=== PATIENT | male | born 2000 | race Caucasian/White ===

== ENCOUNTER 2023-04-15 14:21 | Outpatient (OUT) | payer OTHER, SELFPAY ==
[2023-04-15 14:47] LABS: Basophils Percent Auto 0.3 % (0.2-2.0); Eosinophils Absolute Auto 0.3 10^3/uL (0.0-0.7); Eosinophils Percent Auto 4.3 % (0.9-7.0); Hematocrit 45.8 % (42.0-54.0); Hemoglobin 15.3 g/dL (14.0-18.0); Immature Granulocytes Abs Auto 0.01 10^3/uL (0.00-0.03); Immature Granulocytes Pct Auto 0.1 % (0.0-0.5); Lymphocytes Absolute Auto 1.9 10^3/uL (1.2-3.8); Mean Corpuscular HGB Conc 33.4 g/dL (29.9-35.2); Mean Corpuscular Hemoglobin 30.9 pg (25.9-34.0); Mean Corpuscular Volume 92.5 fL (80.0-94.0); Mean Platelet Volume 8.8 fL (9.5-13.5); Monocytes Absolute Auto 0.5 10^3/uL (0.3-0.8); Monocytes Percent Auto 7.1 % (1.7-12.0); Neutrophils Absolute Auto 4.7 10^3/uL (1.4-6.5); Neutrophils Percent Auto 63.2 % (43.0-75.0); Platelet Count 290 10^3/uL (150-450); Red Blood Count 4.95 10^6/uL (4.70-6.10); Red Cell Distribution Width 13.7 % (11.0-15.0); White Blood Count 7.4 10^3/uL (4.0-11.0)
== END 2023-04-15 14:22 | disposition home or self-care (01) ==
LOC: PST 14:22
PROVIDERS: Family Provider Pediatrics; PCP Family Medicine; Visit Provider Otolaryngology
DX: Z01.812 Encounter for preprocedural laboratory examination (principal); H69.93 Unspecified Eustachian tube disorder, bilateral
CPT/HCPCS: 85025

== ENCOUNTER 2023-04-21 07:47 | Day surgery (SDC) | payer OTHER, SELFPAY ==
[2023-04-15 14:43] VITALS: BP 130/72; PULSE 73; RESP 20; TEMP 36.7; O2SAT 96; BMI 28.5
[2023-04-21] VITALS (9 sets, daily range): BP systolic 104–158; BP diastolic 48–83; PULSE 68–90; RESP 12–16; TEMP 36.3–36.6; O2SAT 95–100; BMI 28.6
--- NOTE | 2023-04-21 | OP_ITS ---
OPERATION DATE: 04/21/2023 PRIMARY CARE PHYSICIAN: Schuyler Cox D.O. SURGEON: Sabra Wong M.D. PREOPERATIVE DIAGNOSIS: Eustachian tube dysfunction. POSTOPERATIVE DIAGNOSIS: Eustachian tube dysfunction. PROCEDURE: Bilateral myringotomy and tube with microdissection, placement of T- tubes. ANESTHESIA: General LMA COMPLICATIONS: None. FINDINGS: Bilateral tympanic membrane retraction and mucoid effusion. INDICATIONS: This 22-year-old presented with chronic bilateral ear fullness and hearing loss. He is noted to have bilateral middle ear effusions on examination and he has already failed aggressive medical management. Patient also has a history of tympanostomy tube placement as a child. PROCEDURE: Patient identified in the holding area and taken back to the OR where he was placed in the supine position. After induction of general anesthesia by LMA, the right ear was approached with the otomicroscope. Cerumen was cleaned from the canal using a cerumen curette and a pick used to tease crust away from the tympanic membrane and external auditory canal, which was then removed with an alligator forcep. A anterior radial myringotomy was performed and the thick mucoid effusion was suctioned from the ear. Suction was then used to reduce the posterior tympanic membrane retraction. A modified Austin?s T-tube was the folded, inserted through the myringotomy and opened in the middle ear using microdissection. Ciprodex drops were then infused. Attention was the turned to the left ear and the same procedure performed. Patient was then awakened and taken to the recovery room in good condition. ANDREA
--- OUTSIDE RECORDS SUMMARY | 2023-04-21 07:49 | XMS_ITS | CCD ---
Author Name Unknown Address [address] [place] [address] Organization [facility] Care Team Providers Care Tester Regulator Name Role Phone DO Schuyler Cox Primary Care Provider DO Schuyler Cox Attending Provider Schuyler Cox Attending Unavailable Schuyler Cox Primary Care Unavailable Schuyler Cox Admitting Unavailable Minerva Asif Unavailable Schuyler Cox Unavailable SHAUNNA BRADLEY Attending Unavailable SCHUYLER COX Referring Unavailable SABRA WONG Attending Unavailable SCHUYLER COX Referring Unavailable Medications Current Medications Medication Drug Class(es) Dates Sig (Normalized) Sig (Original) amoxicillin 875 mg oral tablet (3 sources) Penicillin-class Antibacterial Start: 03-13-2022 take 1 tablet by mouth every twelve hours Amoxicillin 875 MG 1 tablet Orally Twice a day for 10 day(s) Dec, Active benzonatate 100 mg oral capsule (1 source) Non-narcotic Antitussive Start: 03-26-2023 take 1 capsule by mouth three times daily as needed for cough Tessalon Perles 100 MG 1 capsule as needed Orally Three times a day as needed cough for 10 days Feb, Active cetirizine hydrochloride 10 mg oral tablet (6 sources) Histamine-1 Receptor Antagonist take 1 tablet by mouth once daily ZyrTEC Allergy 10 MG 1 tablet OTC Orally Once a day Active levoFLOXacin 500 mg oral tablet (1 source) Quinolone Antimicrobial Start: 02-23-2023 take 1 tablet by mouth every twenty-four hours levoFLOXacin 500 MG 1 tablet Orally Once a day for 20 days Jan, Active Completed/Discontinued Medications Medication Drug Class(es) Dates Sig (Normalized) Sig (Original) sulfamethoxazole 800 mg / trimethoprim 160 mg oral tablet (2 sources) Dihydrofolate Reductase Inhibitor Antibacterial, Sulfonamide Antimicrobial Start: 02-05-2023 take 1 tablet by mouth every twelve hours Bactrim DS 800-160 MG 1 tablet Orally Twice a day for 10 days Jan, Not-Taking Problems Problem Classification Problem Date Documented Date Episodic/Chronic Other ear and sense organ disorders (3 sources) Impacted cerumen, left ear Episodic Other non-traumatic joint disorders (1 source) Pain in left shoulder Episodic Other upper respiratory disease (5 sources) Perennial allergic rhinitis; Translations: [Other allergic rhinitis] Chronic Other upper respiratory disease (1 source) Other allergic rhinitis Chronic Other upper respiratory infections (1 source) Acute sinusitis, unspecified Episodic Otitis media and related conditions (13 sources) Otitis media, unspecified, right ear; Translations: [Unspecified nonsuppurative otitis media, right ear] Episodic Residual codes; unclassified (1 source) Personal history of systemic steroid therapy; Translations: [Personal history of systemic steroid therapy] Onset: 03-18-2022 Episodic Residual codes; unclassified (6 sources) History of clinical finding in subject; Translations: [Personal history of systemic steroid therapy] Episodic Unclassified (1 source) Encounter for general adult medical examination without abnormal findings; Translations: [Encounter for general adult medical examination without abnormal findings] Onset: 03-18-2022 Results Test Name Value Interpretation Reference Range Facility Basic Metabolic Panelon 02-28 Anion gap [Moles/Vol] 11.3 mmol/L Normal 6.0-15.0 [facility] Comment on above: Order Comment: Mustaphao n for Exam Adult general medical examination FASTING. JKW Performed By: #### T SH3, T4T, LIPID, HEPATIC, TEST, CBC, BMP #### [facility] [address] [place] [address] [place] Calcium [Mass/Vol] 9.9 mg/dL Normal 8.2-10.2 [facility] Comment on above: Order Comment: Mustaphao n for Exam Adult general medical examination FASTING. JKW Performed By: #### T SH3, T4T, LIPID, HEPATIC, TEST, CBC, BMP #### [facility] [address] [place] [id number] [place] Chloride [Moles/Vol] 101 mmol/L Normal 95-114 [facility] Comment on above: Order Comment: Reaso n for Exam Adult general medical examination FASTING. JKW Performed By: #### T SH3, T4T, LIPID, HEPATIC, TEST, CBC, BMP #### [facility] [address] CO2 [Moles/Vol] 30.0 mmol/L Normal 22.0-30.0 [facility] Comment on above: Order Comment: Reaso n for Exam Adult general medical examination FASTING. JKW Performed By: #### T SH3, T4T, LIPID, HEPATIC, TEST, CBC, BMP #### [facility] [address] Creatinine [Mass/Vol] 1.37 mg/dL High 0.64-1.27 [facility] Comment on above: Order Comment: Reaso n for Exam Adult general medical examination FASTING. JKW Performed By: #### T SH3, T4T, LIPID, HEPATIC, TEST, CBC, BMP #### [facility] [address] Estimated GFR ( Lorenza > 60 [facility] Comment on above: Order Comment: Reaso n for Exam Adult general medical examination FASTING. JKW Result Comment: GFR estimated reference range: According to KDOQI guidelines, <60 ml/min/1.73m2 is sufficient to diagnose a patient with chronic kidney disease. Performed By: #### T SH3, T4T, LIPID, HEPATIC, TEST, CBC, BMP #### [facility] [address] Estimated GFR (Non- Am > 60 [facility] Comment on above: Order Comment: Reaso n for Exam Adult general medical examination FASTING. JKW Performed By: #### T SH3, T4T, LIPID, HEPATIC, TEST, CBC, BMP #### [facility] [address] [place] [id number] [place] Glucose [Mass/Vol] 95 mg/dL Normal 70-100 [facility] Comment on above: Order Comment: Reaso n for Exam Adult general medical examination FASTING. JKW Result Comment: Welcome om Glucose Reference Range is dependent on time and content of last meal. Glucose of more than 200 mg/dL in a nonstressed, ambulatory subject supports the diagnosis of Diabetes Mellitus. ADA recommended reference range Performed By: #### T SH3, T4T, LIPID, HEPATIC, TEST, CBC, BMP #### [facility] [address] Potassium [Moles/Vol] 4.3 mmol/L Normal 3.5-5.1 [facility] Comment on above: Order Comment: Reaso n for Exam Adult general medical examination FASTING. JKW Performed By: #### T SH3, T4T, LIPID, HEPATIC, TEST, CBC, BMP #### [facility] [address] Sodium [Moles/Vol] 138 mmol/L Normal 136-146 [facility] Comment on above: Order Comment: Reaso n for Exam Adult general medical examination FASTING. JKW Performed By: #### T SH3, T4T, LIPID, HEPATIC, TEST, CBC, BMP #### [facility] [address] Urea nitrogen [Mass/Vol] 23 mg/dL Normal 9-23 [facility] Comment on above: Order Comment: Reaso n for Exam Adult general medical examination FASTING. JKW Performed By: #### T SH3, T4T, LIPID, HEPATIC, TEST, CBC, BMP #### [facility] [address] Basophils Auto (Bld) [#/Vol] Ordered By: Schuyler Cox on 03-18-2022 Basophils (Bld) [#/Vol] 0.0 10*3/uL 0.0-0.2 [facility] Basophils/100 WBC Auto (Bld) Ordered By: Schuyler Cox on 03-18-2022 Basophils/100 WBC (Bld) 0.2 % . F [facility] Body fluid albumin measureme nt (mass/volume)Ordered By: Schuyler Cox on 03-18-2022 Albumin (Body fld) [Mass/Vol] 4.5 g/dL 3.2-5.5 [facility] Cholesterol [Mass/volume] in Serum or PlasmaOrdered By: Schuyler Cox on 03-18-2022 Cholesterol [Mass/Vol] 165 mg/dL 140-200 [facility] Comment on above: Chol less than 200 m g/dl low riskChol 201-239 mg/dl borderline riskChol 240 mg/dl and greater high risk Cholesterol in LDL Calc [Mas s/Vol]Ordered By: Schuyler Cox on 03-18-2022 Cholesterol in LDL [Mass/Vol] 101 mg/dL 0-100 [facility] Comment on above: LDL ATP III CLASSIFI CATIONLDL less than 100 mg/dL OptimalLDL 100-129 mg/dL Near or above optimalLDL 130-159 mg/dL Borderline highLDL 160-189 mg/dL HighLDL greater than 189 mg/dL Very high Cholesterol in VLDL Calc [Ma ss/Vol]Ordered By: Schuyler Cox on 03-18-2022 Cholesterol in VLDL [Mass/Vol] 15 mg/dL [facility] Complete Blood Count Auto Di ffon 03-18-2022 Basophils (Bld) [#/Vol] 0.0 10*3/uL Normal 0.0-0.2 [facility] Comment on above: Order Comment: Reaso n for Exam Adult general medical examination Result Comment: PERF ORMED BY: [place] [address] PATHOLOGIST [employer] HELPER LES MORENO M.D. Performed By: #### T SH3, T4T, LIPID, HEPATIC, TEST, CBC, BMP #### [facility] [address] Basophils/100 WBC (Bld) 0.2 % Normal . F [facility] Comment on above: Order Comment: Reaso n for Exam Adult general medical examination Performed By: #### T SH3, T4T, LIPID, HEPATIC, TEST, CBC, BMP #### [facility] [address] Eosinophils (Bld) [#/Vol] 0.3 10*3/uL Normal 0.0-0.45 [facility] Comment on above: Order Comment: Reaso n for Exam Adult general medical examination Performed By: #### T SH3, T4T, LIPID, HEPATIC, TEST, CBC, BMP #### [facility] [address] [place] [address] [place] Eosinophils/100 WBC (Bld) 4.2 % Normal . [facility] Comment on above: Order Comment: Reaso n for Exam Adult general medical examination Performed By: #### T SH3, T4T, LIPID, HEPATIC, TEST, CBC, BMP #### [address] Erythrocyte distribution width (RBC) [Ratio] 12.4 % Normal 12.0-14.8 [facility] Comment on above: Order Comment: Reaso n for Exam Adult general medical examination Performed By: #### T SH3, T4T, LIPID, HEPATIC, TEST, CBC, BMP #### [address] Hematocrit (Bld) [Volume fraction] 47.1 % Normal 38.8-50.0 [facility] Comment on above: Order Comment: Reaso n for Exam Adult general medical examination Performed By: #### T SH3, T4T, LIPID, HEPATIC, TEST, CBC, BMP #### [address] Hemoglobin (Bld) [Mass/Vol] 15.4 g/dL Normal 13.0-17.0 [facility] Comment on above: Order Comment: Reaso n for Exam Adult general medical examination Performed By: #### T SH3, T4T, LIPID, HEPATIC, TEST, CBC, BMP #### [place] [address] [place] Lymphocytes (Bld) [#/Vol] 2.5 10*3/uL Normal 1.00-4.8 [facility] Comment on above: Order Comment: Reaso n for Exam Adult general medical examination Performed By: #### T SH3, T4T, LIPID, HEPATIC, TEST, CBC, BMP #### [address] Lymphocytes/100 WBC (Bld) 37.0 % Normal . [facility] Comment on above: Order Comment: Reaso n for Exam Adult general medical examination Performed By: #### T SH3, T4T, LIPID, HEPATIC, TEST, CBC, BMP #### [facility] [address] MCH (RBC) [Entitic mass] 30.8 pg Normal 27.5-35.2 [facility] Comment on above: Order Comment: Reaso n for Exam Adult general medical examination Performed By: #### T SH3, T4T, LIPID, HEPATIC, TEST, CBC, BMP #### [address] MCV (RBC) [Entitic vol] 94.5 fL Normal 83.5-[address] [facility] Comment on above: Order Comment: Reaso n for Exam Adult general medical examination Performed By: #### T SH3, T4T, LIPID, HEPATIC, TEST, CBC, BMP #### [address] Mean Corpuscular HGB Conc 32.6 g/dL Normal 32.5-35.6 [facility] Comment on above: Order Comment: Reaso n for Exam Adult general medical examination Performed By: #### T SH3, T4T, LIPID, HEPATIC, TEST, CBC, BMP #### [address] Monocytes (Bld) [#/Vol] 0.7 10*3/uL Normal 0.0-0.8 [facility] Comment on above: Order Comment: Reaso n for Exam Adult general medical examination Performed By: #### T SH3, T4T, LIPID, HEPATIC, TEST, CBC, BMP #### [address] Monocytes/100 WBC (Bld) 9.7 % Normal . F [facility] Comment on above: Order Comment: Reaso n for Exam Adult general medical examination Performed By: #### T SH3, T4T, LIPID, HEPATIC, TEST, CBC, BMP #### [address] Neutrophils (Bld) [#/Vol] 3.4 10*3/uL Normal 1.8-7.7 [facility] Comment on above: Order Comment: Reaso n for Exam Adult general medical examination Performed By: #### T SH3, T4T, LIPID, HEPATIC, TEST, CBC, BMP #### [address] Neutrophils/100 WBC (Bld) 48.9 % Normal . [facility] Comment on above: Order Comment: Reaso n for Exam Adult general medical examination Performed By: #### T SH3, T4T, LIPID, HEPATIC, TEST, CBC, BMP #### [address] NRBC% 0.1 /100{WBC} Normal 0-0.5 [facility] Comment on above: Order Comment: Reaso n for Exam Adult general medical examination Performed By: #### T SH3, T4T, LIPID, HEPATIC, TEST, CBC, BMP #### [address] Platelet mean volume (Bld) [Entitic vol] 7.6 fL Normal 6.6-10.1 [facility] Comment on above: Order Comment: Reaso n for Exam Adult general medical examination Performed By: #### T SH3, T4T, LIPID, HEPATIC, TEST, CBC, BMP #### [address] Platelets (Bld) [#/Vol] 235 10*3/uL Normal 150-450 [facility] Comment on above: Order Comment: Reaso n for Exam Adult general medical examination Performed By: #### T SH3, T4T, LIPID, HEPATIC, TEST, CBC, BMP #### [address] RBC (Bld) [#/Vol] 4.99 10*6/uL Normal 3.90-5.60 [facility] Comment on above: Order Comment: Reaso n for Exam Adult general medical examination Performed By: #### T SH3, T4T, LIPID, HEPATIC, TEST, CBC, BMP #### [address] WBC (Bld) [#/Vol] 6.9 10*3/uL Normal 4.1-10.5 [facility] Comment on above: Order Comment: Reaso n for Exam Adult general medical examination Performed By: #### T SH3, T4T, LIPID, HEPATIC, TEST, CBC, BMP #### [facility] [address] Creatinine and Glomerular fi ltration rate.predicted panel (S/P/Bld)Ordered By: Schuyler Cox on 03-18-2022 Creatinine [Mass/Vol] 1.37 mg/dL 0.64-1.27 [facility] Direct bilirubin measurement Ordered By: Schuyler Cox on 03-18-2022 Bilirubin.direct [Mass/Vol] 0.1 mg/dL 0.0-0.4 [facility] Eosinophils Auto (Bld) [#/Vo l]Ordered By: Schuyler Cox on 03-18-2022 Eosinophils (Bld) [#/Vol] 0.3 10*3/uL 0.0-0.45 [facility] Eosinophils/100 WBC Auto (Bl d)Ordered By: Schuyler Cox on 03-18-2022 Eosinophils/100 WBC (Bld) 4.2 % . [facility] Erythrocyte distribution wid th Auto (RBC) [Ratio]Ordered By: Schuyler Cox on 03-18-2022 Erythrocyte distribution width (RBC) [Ratio] 12.4 % 12.0-14.8 [facility] Estimated glomerular filtrat ion rate (GFR) non- AmericanOrdered By: Schuyler Cox on 03-18-2022 GFR/1.73 sq M.predicted among non-blacks MDRD (S/P/Bld) [Vol rate/Area] > 60 mL/Min [facility] Globulin Calc (S) [Mass/Vol] Ordered By: Schuyler Cox on 03-18-2022 Globulin (S) [Mass/Vol] 2.6 g/dL [facility] Hematocrit Auto (Bld) [Volum e fraction]Ordered By: Schuyler Cox on 03-18-2022 Hematocrit (Bld) [Volume fraction] 47.1 % 38.8-50.0 [facility] Hemoglobin [Mass/volume] in BloodOrdered By: Schuyler oCx on 03-18-2022 Hemoglobin (Bld) [Mass/Vol] 15.4 g/dL 13.0-17.0 [facility] Hepatic Panelon 03-18-2022 Albumin [Mass/Vol] 4.5 g/dL Normal 3.2-5.5 [facility] Comment on above: Order Comment: Reaso n for Exam Adult general medical examination FASTING. JKW Performed By: #### T SH3, T4T, LIPID, HEPATIC, TEST, CBC, BMP #### [facility] [address] [place] [id number] [facility] Albumin/Globulin [Mass ratio] 1.7 {ratio} Normal [facility] Comment on above: Order Comment: Reaso n for Exam Adult general medical examination FASTING. JKW Performed By: #### T SH3, T4T, LIPID, HEPATIC, TEST, CBC, BMP #### [facility] [address] [place] [address] [place] ALP [Catalytic activity/Vol] 68 U/L Normal 32-92 [facility] Comment on above: Order Comment: Reaso n for Exam Adult general medical examination FASTING. JKW Performed By: #### T SH3, T4T, LIPID, HEPATIC, TEST, CBC, BMP #### [facility] [address] [place] [address] [place] ALT [Catalytic activity/Vol] 43 U/L Normal 10-60 [facility] Comment on above: Order Comment: Reaso n for Exam Adult general medical examination FASTING. JKW Performed By: #### T SH3, T4T, LIPID, HEPATIC, TEST, CBC, BMP #### [facility] [address] [place] [address] [place] AST [Catalytic activity/Vol] 44 U/L High 10-42 [facility] Comment on above: Order Comment: Reaso n for Exam Adult general medical examination FASTING. JKW Performed By: #### T SH3, T4T, LIPID, HEPATIC, TEST, CBC, BMP #### [facility] [address] [place] [address] [place] Bilirubin [Mass/Vol] 0.8 mg/dL Normal 0.3-1.2 [facility] Comment on above: Order Comment: Reaso n for Exam Adult general medical examination FASTING. JKW Performed By: #### T SH3, T4T, LIPID, HEPATIC, TEST, CBC, BMP #### [facility] [address] Bilirubin,Indirect 0.7 mg/dL Normal [facility] Comment on above: Order Comment: Reaso n for Exam Adult general medical examination FASTING. JKW Performed By: #### T SH3, T4T, LIPID, HEPATIC, TEST, CBC, BMP #### [facility] [address] Bilirubin.indirect [Mass/Vol] 0.1 mg/dL Normal 0.0-0.4 [facility] Comment on above: Order Comment: Reaso n for Exam Adult general medical examination FASTING. JKW Performed By: #### T SH3, T4T, LIPID, HEPATIC, TEST, CBC, BMP #### [facility] [address] Globulin (S) [Mass/Vol] 2.6 g/dL Normal [facility] Comment on above: Order Comment: Reaso n for Exam Adult general medical examination FASTING. JKW Performed By: #### T SH3, T4T, LIPID, HEPATIC, TEST, CBC, BMP #### [facility] [address] [place] [id number] [facility] Protein [Mass/Vol] 7.1 g/dL Normal 6.1-7.9 [facility] Comment on above: Order Comment: Reaso n for Exam Adult general medical examination FASTING. JKW Performed By: #### T SH3, T4T, LIPID, HEPATIC, TEST, CBC, BMP #### [facility] [address] Leukocytes [#/volume] correc osvaldo for nucleated erythrocytes in Blood by Automated counOrdered By: Schuyler Cox on 03-18-2022 WBC corrected for nucl RBC Auto (Bld) [#/Vol] 6.9 10*3/uL 4.1-10.5 [facility] Lipid Panelon 03-18-2022 Cholesterol [Mass/Vol] 165 mg/dL Normal 140-200 [facility] Comment on above: Order Comment: Reaso n for Exam Adult general medical examination FASTING. JKW Result Comment: Chol less than 200 mg/dl low risk Chol 201-239 mg/dl borderline risk Chol 240 mg/dl and greater high risk Performed By: #### T SH3, T4T, LIPID, HEPATIC, TEST, CBC, BMP #### [facility] [address] [place] [address] [place] Cholesterol in HDL [Mass/Vol] 49 mg/dL Normal 29-71 [facility] Comment on above: Order Comment: Reaso n for Exam Adult general medical examination FASTING. JKW Result Comment: HDL CHOL ATP-III CLASSIFICATION Cardiovascular Risk HDL > or equal to 60 mg/dL LOW HDL < 40 mg/dL HIGH Performed By: #### T SH3, T4T, LIPID, HEPATIC, TEST, CBC, BMP #### [facility] [address] [place] [address] [place] Cholesterol.total/Choles terol in HDL [Mass ratio] 3.4 {ratio} Normal <5.0 [facility] Comment on above: Order Comment: Reaso n for Exam Adult general medical examination FASTING. JKW Performed By: #### T SH3, T4T, LIPID, HEPATIC, TEST, CBC, BMP #### [facility] [address] [place] [address] [place] LDL Cholesterol,Calculated 101 mg/dL High 0-100 [facility] Comment on above: Order Comment: Reaso n for Exam Adult general medical examination FASTING. JKW Result Comment: LDL ATP III CLASSIFICATION LDL less than 100 mg/dL Optimal LDL 100-129 mg/dL Near or above optimal LDL 130-159 mg/dL Borderline high LDL 160-189 mg/dL High LDL greater than 189 mg/dL Very high Performed By: #### T SH3, T4T, LIPID, HEPATIC, TEST, CBC, BMP #### [facility] [address] [place] [address] [place] Triglyceride w/Reflex 76 mg/dL Normal 35-149 [facility] Comment on above: Order Comment: Reaso n for Exam Adult general medical examination FASTING. JKW Result Comment: TRIG ATP III CLASSIFICATION TRIG less than 150 mg/dL Normal TRIG 150-199 mg/dL Borderline high TRIG 200-500 mg/dL High TRIG greater than 500 mg/dL Very high Standard traceable to the Center for Disease Conrtrol and Prevention (CDC) test method. Performed By: #### T SH3, T4T, LIPID, HEPATIC, TEST, CBC, BMP #### [facility] [address] VLDL CHOLESTEROL 15 mg/dL Normal [facility] Comment on above: Order Comment: Reaso n for Exam Adult general medical examination FASTING. JKW Performed By: #### T SH3, T4T, LIPID, HEPATIC, TEST, CBC, BMP #### [facility] [address] Lymphocytes Auto (Bld) [#/Vo l]Ordered By: Schuyler Cox on 03-18-2022 Lymphocytes (Bld) [#/Vol] 2.5 10*3/uL 1.00-4.8 [facility] Lymphocytes/100 WBC Auto (Bl d)Ordered By: Schuyler Cox on 03-18-2022 Lymphocytes/100 WBC (Bld) 37.0 % . [facility] MCH Auto (RBC) [Entitic mass ]Ordered By: Schulyer Cox on 03-18-2022 MCH (RBC) [Entitic mass] 30.8 pg 27.5-35.2 [facility] MCHC Auto (RBC) [Mass/Vol]Or dered By: Schuyler Cox on 03-18-2022 MCHC (RBC) [Mass/Vol] 32.6 g/dL 32.5-35.6 [facility] MCV Auto (RBC) [Entitic vol] Ordered By: Schuyler Cox on 03-18-2022 MCV (RBC) [Entitic vol] 94.5 fL 83.5-[address] [facility] Monocytes Auto (Bld) [#/Vol] Ordered By: Schuyler Cox on 03-18-2022 Monocytes (Bld) [#/Vol] 0.7 10*3/uL 0.0-0.8 [facility] Monocytes/100 WBC Auto (Bld) Ordered By: Schuyler Cox on 12-20-2022 Monocytes/100 WBC (Bld) 9.7 % . F [facility] Neutrophils Auto (Bld) [#/Vo l]Ordered By: Schuyler Cox on 03-18-2022 Neutrophils (Bld) [#/Vol] 3.4 10*3/uL 1.8-7.7 [facility] Neutrophils/100 WBC Auto (Bl d)Ordered By: Schuyler Cox on 03-18-2022 Neutrophils/100 WBC (Bld) 48.9 % . [facility] No Panel InformationOrdered By: Schuyler Cox on 03-18-2022 Estimated GFR () > 60 mL/Min [facility] Comment on above: GFR estimated refere nce range: According to KDOQI guidelines, <60 ml/min/1.73m2 is sufficient to diagnose a patient with chronic kidney disease. Pharmacy Creatinine Clearance (Chem N/A [facility] Nucleated erythrocytes [Pres ence] in Blood by Automated countOrdered By: Schuyler Cox on 03-18-2022 Nucleated RBC Auto Ql (Bld) 0.1 /100{WBC} 0-0.5 [facility] Platelet mean volume Auto (B ld) [Entitic vol]Ordered By: Schuyler Cox on 03-18-2022 Platelet mean volume (Bld) [Entitic vol] 7.6 fL 6.6-10.1 [facility] Platelets Auto (Bld) [#/Vol] Ordered By: Schuyler Cox on 03-18-2022 Platelets (Bld) [#/Vol] 235 10*3/uL 150-450 [facility] Protein [Mass/volume] in Ser um or PlasmaOrdered By: Schuyler Cox on 03-18-2022 Protein [Mass/Vol] 7.1 g/dL 6.1-7.9 [facility] RBC Auto (Bld) [#/Vol]Ordere d By: Schuyler Cox on 03-18-2022 RBC (Bld) [#/Vol] 4.99 10*6/uL 3.90-5.60 [facility] Serum or plasma alanine moreno otransferase measurement without P-5'-P (enzymatic activiOrdered By: Schuyler Cox on 03-18-2022 ALT No additional P-5'-P [Catalytic activity/Vol] 43 U/L 10-60 [facility] Serum or plasma albumin/glob ulin mass ratioOrdered By: Schuyler Cox on 03-18-2022 Albumin/Globulin [Mass ratio] 1.7 {ratio} [facility] Serum or plasma alkaline patsy sphatase measurement (enzymatic activity/volume)Ordered By: Schuyler Cox on 03-18-2022 ALP [Catalytic activity/Vol] 68 U/L 32-92 [facility] Serum or plasma anion gap de terminationOrdered By: Schuyler Cox on 03-18-2022 Anion gap [Moles/Vol] 11.3 mmol/L 6.0-15.0 [facility] Serum or plasma aspartate am inotransferase measurement (enzymatic activity/volume)Ordered By: Schuyler Cox on 03-18-2022 AST [Catalytic activity/Vol] 44 U/L 10-42 [facility] Serum or plasma calcium norma urement (mass/volume)Ordered By: Schuyler Cox on 03-18-2022 Calcium [Mass/Vol] 9.9 mg/dL 8.2-10.2 [facility] Serum or plasma chloride berry surement (moles/volume)Ordered By: Schuyler Cox on 03-18-2022 Chloride [Moles/Vol] 101 mmol/L 95-114 [facility] Serum or plasma glucose norma urement (mass/volume)Ordered By: Schuyler Cox on 03-18-2022 Glucose [Mass/Vol] 95 mg/dL 70-100 [facility] Comment on above: ADA recommended refe rence rangeRandom Glucose Reference Range is dependent on time and content of last meal. Glucose of more than 200 mg/dL in a nonstressed, ambulatory subject supports the diagnosis of Diabetes Mellitus. Serum or plasma high density lipoprotein (HDL) cholesterol measurementOrdered By: Schuyler Cox on 03-18-2022 Cholesterol in HDL [Mass/Vol] 49 mg/dL 29-71 [facility] Comment on above: HDL CHOL ATP-III CLA SSIFICATION Cardiovascular RiskHDL > or equal to 60 mg/dL LOWHDL < 40 mg/dL HIGH Serum or plasma non-glucuron idated bilirubin measurement (mass/volume)Ordered By: Schuyler Cox on 03-18-2022 Bilirubin.indirect [Mass/Vol] 0.7 mg/dL [facility] Serum or plasma potassium me asurement (moles/volume)Ordered By: Schuyler Cox on 03-18-2022 Potassium [Moles/Vol] 4.3 mmol/L 3.5-5.1 [facility] Serum or plasma sodium measu rement (moles/volume)Ordered By: Schuyler Cox on 03-18-2022 Sodium [Moles/Vol] 138 mmol/L 136-146 [facility] Serum or plasma thyroxine (T 4) measurement (mass/volume)Ordered By: Schuyler Cox on 03-18-2022 T4 [Mass/Vol] 6.83 ug/dL 5.39-11.82 [facility] Serum or plasma total biliru bin measurement (mass/volume)Ordered By: Schuyler Cox on 03-18-2022 Bilirubin [Mass/Vol] 0.8 mg/dL 0.3-1.2 [facility] Serum or plasma total carbon dioxide measurement (moles/volume)Ordered By: Schuyler Cox on 03-18-2022 CO2 [Moles/Vol] 30.0 mmol/L 22.0-30.0 [facility] Serum or plasma total choles terol/high density lipoprotein (HDL) cholesterol mass ratOrdered By: Schuyler Cox on 03-18-2022 Cholesterol.total/Choles terol in HDL [Mass ratio] 3.4 {ratio} <5.0 [facility] Serum or plasma urea nitroge n measurement (mass/volume)Ordered By: Schuyler Cox on 03-18-2022 Urea nitrogen [Mass/Vol] 23 mg/dL 12-20 [facility] TSH DL <= 0.005 mIU/L QnOrde red By: Schuyler Cox on 03-18-2022 TSH Qn 4.79 m[IU]/L 0.45-5.33 [facility] Testosteroneon 03-18-2022 Testosterone 4.24 ng/mL Normal 1.75-7.81 [facility] Comment on above: Order Comment: Reaso n for Exam History of anabolic steroid use Result Comment: PERF ORMED BY: [place] [address] PATHOLOGIST [employer] HELPER LES MORENO M.D. Performed By: #### T SH3, T4T, LIPID, HEPATIC, TEST, CBC, BMP #### [facility] [address] [place] [address] Testosterone [Mass/volume] i n Serum or PlasmaOrdered By: Schuyler Cox on 03-18-2022 Testosterone [Mass/Vol] 4.24 ng/mL 1.75-7.[address] [facility] Thyroid Stimulating Hormoneo n 03-18-2022 TSH Qn 4.79 m[IU]/L Normal 0.45-5.33 [facility] Comment on above: Order Comment: Reaso n for Exam Adult general medical examination FASTING. JKW Result Comment: PERF ORMED BY: [place] [address] PATHOLOGIST DISTILL[employer] MILL[employer] HELPER LES MORENO M.D. Performed By: #### T SH3, T4T, LIPID, HEPATIC, TEST, CBC, BMP #### [address] Thyroxine (T4) Totalon 03-18 T4 [Mass/Vol] 6.83 ug/dL Normal 5.39-11.82 [facility] Comment on above: Order Comment: Reaso n for Exam Adult general medical examination FASTING. JKW Performed By: #### T SH3, T4T, LIPID, HEPATIC, TEST, CBC, BMP #### [facility] [address] [place] [address] Triglyceride [Mass/volume] i n Serum or PlasmaOrdered By: Schuyler Cox on 03-18-2022 Triglyceride [Mass/Vol] 76 mg/dL 35-[address] [facility] Comment on above: TRIG ATP III CLASSIF ICATIONTRIG less than 150 mg/dL NormalTRIG 150-199 mg/dL Borderline highTRIG 200-500 mg/dL High TRIG greater than 500 mg/dL Very highStandard traceable to the Center for Disease Conrtrol and Prevention (CDC) test method. WBC Auto (Bld) [#/Vol]Ordere d By: Schuyler Torresr on 03-18-2022 WBC (Bld) [#/Vol] 6.9 10*3/uL 4.1-10.5 [facility] Vital Signs Date Time Vital Sign Value Performing Clinician Facility 03-26-2023 10:30-0500 Body height 180.34 cm Schuyler Oberer [facility] Other 03-26-2023 10:30-0500 Body mass index (BMI) [Ratio] 28.7 kg/m2 Schuyler Oberer [facility] Other 03-26-2023 10:30-0500 Body temperature 96.8 [degF] Schuyler Oberer [facility] Other 03-26-2023 10:30-0500 Body weight 93.35 kg Schuyler Oberer [facility] Other 03-26-2023 10:30-0500 Diastolic blood pressure 71 mm[Hg] Schuyler Oberer [facility] Other 03-26-2023 10:30-0500 Respiratory rate 16 /min Schuyler Oberer [facility] Other 03-26-2023 10:30-0500 SaO2% (BldA) [Mass fraction] 96 % Schuyler Oberer [facility] Other 03-26-2023 10:30-0500 Systolic blood pressure 116 mm[Hg] Schuyler Oberer [facility] Other 02-23-2023 13:45-0500 Body height 180.34 cm Schuyler Oberer [facility] Other 02-23-2023 13:45-0500 Body mass index (BMI) [Ratio] 28 kg/m2 Schuyler Oberer [facility] Other 02-23-2023 13:45-0500 Body temperature 98.4 [degF] Schuyler Oberer [facility] Other 02-23-2023 13:45-0500 Body weight 91.08 kg Schuyler Oberer [facility] Other 02-23-2023 13:45-0500 Diastolic blood pressure 85 mm[Hg] Schuyler Oberer [facility] Other 02-23-2023 13:45-0500 Respiratory rate 16 /min Schuyler Oberer [facility] Other 02-23-2023 13:45-0500 SaO2% (BldA) [Mass fraction] 96 % Schuyler Oberer [facility] Other 02-23-2023 13:45-0500 Systolic blood pressure 139 mm[Hg] Schuyler Oberer [facility] Other 02-09-2023 15:30-0500 Body height 180.34 cm Schuyler Oberer [facility] Other 02-09-2023 15:30-0500 Body mass index (BMI) [Ratio] 27.11 kg/m2 Schuyler Oberer [facility] Other 02-09-2023 15:30-0500 Body temperature 98.4 [degF] Schuyler Oberer [facility] Other 02-09-2023 15:30-0500 Body weight 88.18 kg Schuyler Oberer [facility] Other 02-09-2023 15:30-0500 Diastolic blood pressure 69 mm[Hg] Schuyler Oberer [facility] Other 02-09-2023 15:30-0500 Respiratory rate 16 /min Schuyler Oberer [facility] Other 02-09-2023 15:30-0500 SaO2% (BldA) [Mass fraction] 97 % Schuyler Oberer [facility] Other 02-09-2023 15:30-0500 Systolic blood pressure 126 mm[Hg] Schuyler Oberer [facility] Other 01-30-2023 16:15-0400 Body height 180.34 cm Schuyler Oberer [facility] Other 01-30-2023 16:15-0400 Body mass index (BMI) [Ratio] 26.92 kg/m2 Schuyler Oberer [facility] Other 01-30-2023 16:15-0400 Body temperature 99.1 [degF] Schuyler Oberer [facility] Other 01-30-2023 16:15-0400 Body weight 87.54 kg Schuyler Oberer [facility] Other 01-30-2023 16:15-0400 Diastolic blood pressure 63 mm[Hg] Schuyler Oberer [facility] Other 01-30-2023 16:15-0400 Respiratory rate 16 /min Schuyler Oberer [facility] Other 01-30-2023 16:15-0400 SaO2% (BldA) [Mass fraction] 98 % Schuyler Oberer [facility] Other 01-30-2023 16:15-0400 Systolic blood pressure 110 mm[Hg] Schuyler Oberer [facility] Other 01-23-2023 14:40-0400 Body height 180.34 cm Minerva Asif [facility] Other 01-23-2023 14:40-0400 Body temperature 99.6 [degF] [facility]a [facility] Other 01-23-2023 14:40-0400 Diastolic blood pressure 78 mm[Hg] [facility]a As[facility] Other 01-23-2023 14:40-0400 SaO2% (BldA) [Mass fraction] 97 % [facility] Other 01-23-2023 14:40-0400 Systolic blood pressure 147 mm[Hg] [facility]a [facility] Other Encounters Encounter Date Encounter Type Care Provider Facility Start: 04-10-2023 End: 04-10-2023 ambulatory SABRA GIBSONMIS Not Available Start: 04-06-2023 End: 04-06-2023 ambulatory SHAUNNA BRADLEY Not Available Start: 03-26-2023 End: 03-26-2023 ambulatory Schuyler Oberer [facility] Other Start: 03-26-2023 Office outpatient vi sit 15 minutes Schuyler Oberer [facility] Start: 02-23-2023 End: 02-23-2023 ambulatory Schuyler Oberer [facility] Other Start: 02-23-2023 Office outpatient vi sit 15 minutes Schuyler Oberer [facility] Start: 02-09-2023 End: 02-09-2023 ambulatory Schuyler Oberer [facility] Other Start: 02-09-2023 Office outpatient vi sit 15 minutes Schuyler Oberer [facility] Start: 02-05-2023 End: 02-05-2023 ambulatory Schuyler Oberer [facility] Other Start: 02-05-2023 Telephone encounter Schuyler Oberer [facility] Start: 01-30-2023 End: 01-30-2023 ambulatory Schuyler Oberer [facility] Other Start: 01-30-2023 Office outpatient vi sit 15 minutes Schuyler Oberer [facility] Start: 01-23-2023 End: 01-23-2023 ambulatory Minerva Asif Other [facility] Other Start: 01-23-2023 Office outpatient vi sit 15 minutes Minerva Asif [facility] [address] Start: 03-18-2022 End: 03-18-2022 ambulatory Schuyler Oberer Facility:[facility] Start: 03-18-2022 End: 03-18-2022 ambulatory DO Schuyler Oberer Work Phone: [facility] Work Phone: Start: 03-18-2022 End: 03-18-2022 Patient encounter procedure DO Schuyler Cox Work Phone: [facility] Immunizations Immunization Date Immunization Notes Care Provider [place] lowery 11-18-2004 diphtheria, tetanus toxoids and acellular pertussis vaccine Calldemetris [facility] Other 11-18-2004 trivalent poliovirus vaccine, live, oral Calldemetris As[facility] Other 11-18-2004 measles, mumps and rubella virus vaccine [facility]ldem[facility]ris [facility] Other 01-29-2001 measles, mumps and rubella virus vaccine Calldemetris [facility] Other 01-29-2001 diphtheria, tetanus toxoids and acellular pertussis vaccine [facility]emetris [facility] Other 04-15-2000 trivalent poliovirus vaccine, live, oral Calldemetris [facility] Other 04-15-2000 haemophilus influenzae type b conjugate and Hepatitis B vaccine [facility]ldemetris [facility] Other 04-15-2000 diphtheria, tetanus toxoids and acellular pertussis vaccine [facility]emetris [facility] Other 02-10-2000 trivalent poliovirus vaccine, live, oral Calldemetris [facility] Other 02-10-2000 haemophilus influenzae type b conjugate and Hepatitis B vaccine [facility]emetris [facility] Other 02-10-2000 diphtheria, tetanus toxoids and acellular pertussis vaccine Minerva Yefri Other [facility] Other 1999 trivalent poliovirus vaccine, live, oral Minerva Yefri Other [facility] Other 1999 haemophilus influenzae type b conjugate and Hepatitis B vaccine Minerva Yefri Other [facility] Other 1999 diphtheria, tetanus toxoids and acellular pertussis vaccine Calldemetris Yefri Other [facility] Other NEGATED: Highlighted row has not occurred!01-30-2023 Flu Shot - Documentation Purposes Only Patient Objection Schuyler Cox Other [facility] Other Payers Date Payer Category Payer Private Health Insurance [id number] 2022 Private Health Insurance [id number] 2022 Self-pay 1999 Unknown [id number] 1999 Unknown [id number] Unknown [id number] Social History Date Type Detail Facility Tobacco smoking status AZIS Unknown if ever smoked [facility] Work Phone: Start: 2000 Sex Assigned At Male F [facility] Sex Assigned At Sex Assigned At Bir th [facility] Other Evaluation note 03-26-2023 Note Date & Type Note Facility 03-26-2023 Evaluation note Encounter Date Diagnosis Assessment Notes Feb, Right otitis media with effusion (ICD-10 - H65.91) It appears he still has some eustachian tube dysfunction with air fluid behind the right TM. I cannot see the left TM because of cerumen and because of my concern about potential tympanic membrane perforation I did not remove the cerumen. His sinuses remain congested but no further purulent rhinorrhea. I suspect he is having a component of postinfectious sinus and ear inflammation probably on top of some chronic allergies. It is quite important for him to follow-up with Dr. Wong as scheduled. I still do not know if he will need tympanostomy tubes or surgical repair. I am going to focus on reducing his nasal congestion. Take OTC Flonase 2 sprays each nostril twice daily for 2 weeks. Follow-up with Dr. Wong as scheduled Because of his persistent cough, I am also going to prescribe Tessalon as indicated. I did not think we needed more antibiotics right now. Feb, Perforated tympanic membrane, left (ICD-10 - H72.92) See dictation above, Perforation (or rupture) of the eardrum material was published Feb, Dysfunction of right eustachian tube (ICD-10 - H69.91) See dictation above Feb, Left ear impacted cerumen (ICD-10 - H61.22) See dictation above Feb, Acute pain of left shoulder (ICD-10 - M25.512) Clinically he appears to have a left lateral pectoralis muscle tear with some hematoma. Discussed it is difficult to know the role that for quinolone played but it is possible. He continued to lift hard and resumed workouts relatively heavy before his pain had completely resolved. We did discuss to the fastest approach to getting him back to the gym would be formal physical therapy referral and evaluation. He elected to simply give it time. I strongly stressed no lifting or exercise procedure left chest/shoulder unless absolutely pain-free. If he does not do well discussed physical therapy referral, MRI, ENT referral, etc. He declined physical therapy referral. I asked him to avoid all workout exercises that involve any pain at the area of his injury. RTO 1 month and sooner as needed [facility] Other Evaluation note 02-23-2023 Note Date & Type Note Facility 02-23-2023 Evaluation note Encounter Date Diagnosis Assessment Notes Jan, Right otitis media with effusion (ICD-10 - H65.91) He has persistent sinusitis with ongoing bilateral eustachian tube dysfunction, middle ear fluid. This will be his third antibiotic. I am going to prescribe Levaquin for 3 weeks and recheck him then because his appointment with Dr. Wong is not until the above. I again discussed that, although it is not my specialty, I think he may need some ENT intervention including potential tympanostomy tubes, attention to the left TM. At this point I elected not to order sinus CT scans., Inflammation of the middle ear material was published, Middle ear infection: adult home care material was published Jan, Perforated tympanic membrane, left (ICD-10 - H72.92) See dictation above, Perforation (or rupture) of the eardrum material was published, Tympanic membrane perforation: adult home care material was published, Ruptured eardrum material was published Jan, Dysfunction of right eustachian tube (ICD-10 - H69.91) See dictation above, Eustachian tube dysfunction: adult home care material was published Jan, Acute non-recurrent sinusitis, unspecified location (ICD-10 - J01.90) See dictation above, Sinusitis (sinus infection) material was published, Sinusitis home care material was published, Sinusitis material was published Jan, Left ear impacted cerumen (ICD-10 - H61.22) See dictation above, Cerumen impaction home care material was published [facility] Other Evaluation note 02-09-2023 Note Date & Type Note Facility 02-09-2023 Evaluation note Encounter Date Diagnosis Assessment Notes Jan, Otitis media (ICD-10 - H66.90) Ear lavage completed on left ear,items used ear curette, ear washer, elephant splash shield. Sucessful removal, Pt tolerated well. Rosa Rios 02/09/2023 04:45:46 PM > Jan, Right otitis media with effusion (ICD-10 - H65.91) He has purulent sinusitis with persistent right otitis media with effusion. We will have him finish Bactrim DS, continue decongestant. Because of his left ear as below and also because of the persistent right middle ear effusion I am going to refer to Dr. Wong for ENT consult. Discussed perhaps needs tympanocentesis /tympanostomy tube if does not resolve. Jan, Left ear impacted cerumen (ICD-10 - H61.22) See dictation below Jan, Perforated tympanic membrane, left (ICD-10 - H72.92) Discussed he appears to have significant left TM perforation. Discussed I do not know how long its been that way. The fact there was no recent pain suggests maybe it is more chronic. Discussed we also consider related to recent otitis media. He did have tympanostomy tubes by Dr. Wong as a child. Discussed I do not know whether he needs surgical repair., Perforation (or rupture) of the eardrum material was published Jan, Other Refer to Dr. Wong. Please send today's EMR note to Dr. Wong. I did offer to see him back in 7 to 10 days so that I can look again after Bactrim done. He elected to simply follow-up with Dr. Wong and he will call here as needed or sooner if not doing well. [facility] Other Evaluation note 02-05-2023 Note Date & Type Note Facility 02-05-2023 Evaluation note Encounter Date Diagnosis Assessment Notes Jan, Acute right otitis media (ICD-10 - H66.91) [facility] Other Evaluation note 01-30-2023 Note Date & Type Note Facility 01-30-2023 Evaluation note Encounter Date Diagnosis Assessment Notes Jan, Right otitis media with effusion (ICD-10 - H65.91) I did look at his urgent care note. He no longer has any redness to the right TM and therefore I think he should simply finish amoxicillin and I do not need to change antibiotic. We did discuss his effusion/probab le eustachian tube dysfunction. Begin OTC fluticasone nasal spray 2 sprays each nostril twice daily the first bottle then 2 sprays each nostril daily long-term. If this does not help, if things worsen, discussed he may need ENT referral to consider tympanostomy tube., Middle ear infection: adult home care material was published Jan, Dysfunction of right eustachian tube (ICD-10 - H69.91) See dictation above, Eustachian tube dysfunction: adult home care material was published Jan, Perennial allergic rhinitis (ICD-10 - J30.89) See dictation above. If he does not do well on both Zyrtec and fluticasone, we will consider adding Singulair and, if that fails, consider allergy referral for repeat testing and possible shots. Jan, Other I did suggest follow-up in 2 weeks so that I can take a look again especially of the right eardrum. He elected to call and schedule if not doing well needed otherwise RTO as needed [facility] Other Evaluation note 01-23-2023 Note Date & Type Note Facility 01-23-2023 Evaluation note Encounter Date Diagnosis Assessment Notes Dec, Acute right otitis media (ICD-10 - H66.91) Meds as prescribed with food. No swimming or submerging head under water. No Q tips in ear. Push fluids and rest. Otc tylenol and/or motrin prn for ear pain or fever. Pt to f/u with pcp as needed for persistent or recurrent sx. Pt understood and agreed to treatment plan. [facility] Other Evaluation note Note Date & Type Note Facility Evaluation note No assessment information availa [facility] Work Phone: History general Narrative - Reported Note Date & Type Note Facility History general Narrative - Reported Type Medical History Seasonal allergies Surgical History Extracted 2 wisdom teeth 2018 [facility] Other History general Narrative - Reported Note Date & Type Note Facility History general Narrative - Reported Type Medical History Perennial allergic rhinitis Surgical History Extracted 2 wisdom teeth 2018 [facility] Other Chief Complaint and Reason for Visit Chief Complaint Z00.00 Advance Directives No Advanced Directives Records Found Advance Directive Response Recorded Date/ Time Advance Directives No February 6:52am Summary Purpose Family History No Family History Records FoundNo Family History Records Found Reason for Referral Reason evaluate and treat Diagnosis 1 Otitis media (H66.90 ) Diagnosis 2 Perforated ear drum (H72.90) Referral Organization [facility] [place] Referring Provider First Name Schuyler Referring Provider Last Name Obdanae Referring Provider Specialty Family Prac reyna Referred Organization [facility] Referred Provider Sabra Wong Referred Address ,[place], [place],[address] Referred Provider Specialty Ear, Nose an d Throat Referral Priority Routine General Notes Sweta Hanson 1 04/11/2022 04:38:42 PM > Dr Cox would like 1-2 weeks, please. He is a previous patient of Dr Verde, hopefully that helps expedite. Additional Source Comments Care Teams (unrecognized sec tion and content) Team Status: Inactive Member Role Status Dates Schuyler Cox , Primary Care Provider, Attending Prov ider Active Team Status: Active Member Role Status Dates Schuyler Cox , DO Primary Care Provider Active Goals (unrecognized section and content) Goals may be documented in a n alternate sectionNo InformationNo InformationNo InformationNo InformationNo InformationNo Information (unrecognized sect ion and content) No Status Records FoundNo Status Records Found INFORMATION SOURCE (unrecogn ized section and content) DATE CREATED AUTHOR 03/21/2022 [facility] DATE CREATED AUTHOR AUTHOR'S ORGANIZ ATION 04/11/2023 [facility] EPIC REASON FOR VISIT (unrecogniz ed section and content) RIGHT EAR PAINF/U [facility]/ MED NOT HELPING/ DIZZY, started about a week and a half ago - jld, started on 10 day Amoxicillin, has 3 days left. pain started in right ear, then went to both ears about 2 days ago. 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 Denies fever - jld, pt's right eye is red, states he was rubbing it - jld, pt has decreased hearing right ear since symptoms started, left ear 22 days - jld, January 23 [facility] urgent care, cold symptoms 2 weeks improving, then right ear pain and plugging, diminished hearing, right ear red with effusionTHINKS SINUS INFECTIONSTILL HAVING PROBLEM W/EAR, Pharmacy: [facility]. lfr, Pt states that he's still having bilateral ear pain, sinus congestion, cough from post nasal. OTC decongestant used w/ little relief., Thursday Bactrim DS, February 26 seen here, improving, on 7 out of 10-day amoxicillin, January 23 urgent care right ear pain, plugged, 2 weeks cold symptoms, amoxicillinDOUBLE EAR INFECTION, pt states that his bilateral ears are clogged, with decreased hearing, occasional pain - jld, pt is not currently taking any medications for this - jld, pt did have yellowish liquid discharge from his left ear on - jld, pt is scheduled with Dr Wong 04.10.23, because he needed a hearing test first, and they are back up. hearing test is 04.06.23 - jld3 WEEK FOLLOW UP EARS, Pharmacy: [facility]. lfr, Pt states he hasn't had any issues since his last visit. Pt denies any discharge, pain. Pt states his Left Pectoral muscle has been bothering him the last few weeks. Pt states he may have injured it while lifting weights. No other issues at this time. lfr, Amoxicillin, Bactrim, Levaquin for 3 weeks, Dr. Wong April 10 FOR RECORDS PERTAINING TO PATIENTS WHO ARE OR HAVE BEEN ENROLLED IN A CHEMICAL DEPENDENCY/SUBSTANCEABUSE PROGRAM, SOME INFORMATION MAY BE OMITTED. This clinical summary was aggregated from multiple sources. Caution should be exercised in using it in the provision of clinical care. This summary normalizes information from multiple sources, and as a consequence, information in this document may materially change the coding, format and clinical context of patient data. In addition, data may be omitted in some cases. CLINICAL DECISIONS SHOULD BE BASED ON THE PRIMARY CLINICAL RECORDS. [employer] provides no warranty or guarantee of the accuracy or completeness of information in this document.
[2023-04-21] MEDS: LACTATED RINGER'S SOLUTION 1,000 ML 50 ML IV (08:07)
[2023-04-21] MEDS: CIPROFLOXACIN HCL/DEXAMETH 0.3%/0.1% OTIC SUSP 150 DROP/7.5 ML BOTTLE OT (09:20)
--- NOTE | 2023-04-21 10:33 | PC.NURSE ---
No active ear drainage noted
== END 2023-04-21 10:34 | disposition home or self-care (01) ==
PROVIDERS: Family Provider Pediatrics; PCP Family Medicine; Visit Provider Otolaryngology
PROC: (CPT 126; principal; 2023-04-21 08:40)
DX: H69.93 Unspecified Eustachian tube disorder, bilateral (principal); J30.2 Other seasonal allergic rhinitis; H90.2 Conductive hearing loss, unspecified; H65.93 Unspecified nonsuppurative otitis media, bilateral
CPT/HCPCS: 69436; J1100; J2405; J2704; J3010